=== PATIENT | male | born 1995 | race Native Hawaiian/Other Pacific Islander ===

== ENCOUNTER 2018-04-03 14:42 | Inpatient (IN) | payer BC ==
[~2018-04-03] VITALS: Ht 172.7 cm; Wt 77.4 kg
[2018-04-03 14:49] VITALS: BP 125/77; TEMP 99.3
[2018-04-03 15:38] LABS: PLATELET COUNT 269 K/uL (142-355)
[2018-04-03 16:04] LABS: POTASSIUM 4.1 mmol/L (3.6-5.2)
[2018-04-03 17:44] VITALS: BP 118/74; TEMP 99.6; Ht 172.7 cm; Wt 77.4 kg
[2018-04-03 20:03] VITALS: BP 108/90; TEMP 98.6
[2018-04-04] VITALS (7 sets, daily range): BP systolic 89–127; BP diastolic 54–73; TEMP 98.1–99.1
[2018-04-04 05:23] LABS: POTASSIUM 4.5 mmol/L (3.6-5.2)
[2018-04-04 08:27] LABS: PLATELET COUNT 229 K/uL (142-355)
[2018-04-05 05:16] VITALS: BP 119/76; TEMP 98.4
[2018-04-05 05:47] LABS: PLATELET COUNT 202 K/uL (142-355)
[2018-04-05 06:06] LABS: POTASSIUM 4.3 mmol/L (3.6-5.2)
[2018-04-05 07:23] VITALS: BP 132/78; TEMP 98.2
[2018-04-05 11:52] VITALS: BP 126/83; TEMP 98.3
[2018-04-05 16:00] VITALS: BP 122/73; TEMP 98.5
[2018-04-05 20:00] VITALS: BP 126/92; TEMP 98.3
[2018-04-06] VITALS: BP 112/70; TEMP 97.9
[2018-04-06 03:55] VITALS: BP 113/63; TEMP 97.7
[2018-04-06 08:02] VITALS: BP 125/86; TEMP 97.6
[2018-04-06 10:53] LABS: PLATELET COUNT 255 K/uL (142-355)
[2018-04-06 11:12] LABS: POTASSIUM 4.2 mmol/L (3.6-5.2)
[2018-04-06 12:22] VITALS: BP 128/77; TEMP 97.7
== END 2018-04-06 15:09 | disposition home or self-care (01) | DRG 158 ==
LOC: ED 14:42 → MED/SURG 16:25
PROVIDERS: Family Medicine; ADMIT Family Medicine
DX: M27.2 Inflammatory conditions of jaws (principal); L03.211 Cellulitis of face; R60.9 Edema, unspecified
CPT/HCPCS: 36415; 80053; 80202; 85027; 85651; 86140; 87040; 87070; 87077; 87185; 87186; 87205; 96365; 99284; J1885; J3370; Q9963

== ENCOUNTER 2018-04-08 09:39 | Outpatient (CLI) | payer BC ==
[~2018-04-08] VITALS: Ht 172.7 cm; Wt 72.6 kg
== END 2018-04-08 21:19 | disposition home or self-care (01) ==
LOC: INF 09:39
DX: L03.90 Cellulitis, unspecified (principal)
CPT/HCPCS: 96365; 96366; J3370

== ENCOUNTER 2018-04-09 07:57 | Outpatient (CLI) | payer BC ==
[~2018-04-09] VITALS: Ht 172.7 cm; Wt 72.6 kg
== END 2018-04-09 22:01 | disposition home or self-care (01) ==
LOC: INF 07:57
DX: L03.90 Cellulitis, unspecified (principal)
CPT/HCPCS: 36591; 80202; 96365; 96366; J3370

== ENCOUNTER 2018-04-10 08:29 | Outpatient (CLI) | payer BC ==
[~2018-04-10] VITALS: Ht 172.7 cm; Wt 72.6 kg
== END 2018-04-10 19:36 | disposition home or self-care (01) ==
LOC: INF 08:29
DX: L03.90 Cellulitis, unspecified (principal)
CPT/HCPCS: 96365; 96366; J3370

== ENCOUNTER 2018-04-11 08:17 | Outpatient (CLI) | payer BC ==
[~2018-04-11] VITALS: Ht 172.7 cm; Wt 72.6 kg
== END 2018-04-11 22:35 | disposition home or self-care (01) ==
LOC: INF 08:17
DX: L03.90 Cellulitis, unspecified (principal)
CPT/HCPCS: 96365; 96366; J3370

== ENCOUNTER 2018-04-12 08:11 | Outpatient (CLI) | payer BC ==
[~2018-04-12] VITALS: Ht 172.7 cm; Wt 72.6 kg
== END 2018-04-12 23:00 | disposition home or self-care (01) ==
LOC: INF 08:11
DX: K12.2 Cellulitis and abscess of mouth (principal); I89.1 Lymphangitis
CPT/HCPCS: 96365; 96366; J3370

== ENCOUNTER 2018-04-13 08:44 | Outpatient (CLI) | payer BC ==
[~2018-04-13] VITALS: Ht 172.7 cm; Wt 72.6 kg
== END 2018-04-13 23:45 | disposition home or self-care (01) ==
LOC: INF 08:44
DX: K12.2 Cellulitis and abscess of mouth (principal); I89.1 Lymphangitis
CPT/HCPCS: 96365; 96366; J3370

== ENCOUNTER 2019-06-26 13:35 | Emergency (ER) | payer OTHER ==
[~2019-06-26] VITALS: Ht 172.7 cm; Wt 77.1 kg
[2019-06-26 13:43] VITALS: TEMP 97.7
[2019-06-26 14:41] VITALS: BP 132/88
== END 2019-06-26 14:40 | disposition home or self-care (01) ==
LOC: ED 13:35
DX: S50.861A Insect bite (nonvenomous) of right forearm, initial encounter (principal); L03.113 Cellulitis of right upper limb; W57.XXXA Bitten or stung by nonvenomous insect and other nonvenomous arthropods, initial encounter
CPT/HCPCS: 96372; 99283; J0696; J1885

== ENCOUNTER 2019-08-03 16:11 | Observation (INO) | payer OTHER ==
[~2019-08-03] VITALS: Ht 172.7 cm; Wt 86.9 kg
[2019-08-03 16:20] VITALS: BP 158/97; TEMP 98.8
[2019-08-03 17:23] LABS: PLATELET COUNT 250 K/uL (142-355)
[2019-08-03 17:30] LABS: POTASSIUM 4.3 mmol/L (3.6-5.2)
[2019-08-03 21:39] VITALS: BP 146/98; TEMP 98.3; Ht 172.7 cm; Wt 86.9 kg
--- NOTE | 2019-08-03 22:01 | NUR ---
08/03/192049 PT TO ROOM 1108 DX PHARYNGITIS-STREP A/O.SALINE LOCK TO 20 GAUDGE RIGHT FOREARM.PT HAS SCAB AREA TO RT UPPER FOREARM APPROX 2CM SMALL AMOUNT BLOODY DRAINAGE NOTED.PT STATED HE WAS TREATED IN ER 2 WEEKS AGO FOR A SPIDER BITE BUT HAS NOT HEALED COMPLETLY.CALL LIGHT WITHIN REACH.CC
[2019-08-04] VITALS: BP 147/93; TEMP 98
[2019-08-04 04:00] VITALS: BP 144/89; TEMP 98.5
[2019-08-04 08:00] VITALS: BP 127/70; TEMP 99.2
--- NOTE | 2019-08-04 08:30 | NUR ---
Patient is on a CLD, 68" and IBW- 154+/-10% (139-169 lbs.) and kcal needs x 25 = 1750, x 30 2100, x 35 2450, pro 70-92 grams and fluids for weight x 25 = 2125 and weight at 186.7 lbs. and is a 23YOM, WBC 23.7 elevated, gl 113 elevated, Na depressed along iwht ALT and AST, TP elevated at 8.3 and alb 3.3 depressed and patient couldn't eat d/t sore throat and is a smkoer, etoh and street drugs per patient history. Has cellulitis to the face. 28.4 and is overweight for height/weight ratio for BMI. Recommendations: 1- Advance TIM 2- Increase fluids as tolerated. 3-If abscess to face is open add Vit c 500 mg bid and ZNSO4 220 mg per day and d/c in 6 weeks to promote healing.
[2019-08-04 08:56] LABS: PLATELET COUNT 226 K/uL (142-355)
[2019-08-04 12:00] VITALS: BP 136/91; TEMP 98.7
[2019-08-04 16:00] VITALS: BP 136/91; TEMP 98.4
[2019-08-04 20:00] VITALS: BP 133/87; TEMP 97.5
[2019-08-05] VITALS: BP 137/88; TEMP 97.6
[2019-08-05 04:00] VITALS: BP 126/87; TEMP 97.8
[2019-08-05 04:32] LABS: PLATELET COUNT 272 K/uL (142-355)
--- NOTE | 2019-08-05 05:33 | NUR ---
PT. RESTING QUIETLY IN BED WITH EYES CLOSED, NAD NOTED, RESP EVEN AND UNLABORED AT THIS TIME.
[2019-08-05 08:00] VITALS: BP 135/92; TEMP 98.3
--- NOTE | 2019-08-05 09:34 | NUR ---
0900 OFFERED PT TO [facility] RX FILLED AT OUR PHARM PT STATED HE WOULD GET FILLED AT HIS LOCAL PHARM.
== END 2019-08-05 09:27 | disposition home or self-care (01) ==
LOC: ED 16:11 → MED/SURG 19:19
PROVIDERS: Emergency Medicine; ADMIT Family Medicine
DX: J02.0 Streptococcal pharyngitis (principal); D72.828 Other elevated white blood cell count; R50.9 Fever, unspecified
CPT/HCPCS: 36415; 80053; 83605; 85027; 87040; 87502; 87651; 96372; 96374; 99220; 99284; G0378; J0696; J1885; J2930

== ENCOUNTER 2022-05-08 01:43 | Emergency (ER) | payer OTHER ==
[~2022-05-08] VITALS: Ht 172.7 cm; Wt 86.6 kg
[2022-05-08 03:14] LABS: PLATELET COUNT 240 K/uL (142-355)
[2022-05-08 03:21] LABS: POTASSIUM 3.6 mmol/L (3.6-5.2)
[2022-05-08 03:40] VITALS: BP 148/96; TEMP 98.6
== END 2022-05-08 03:40 | disposition home or self-care (01) ==
LOC: ED 01:43
PROVIDERS: Emergency Medicine
DX: F19.10 Other psychoactive substance abuse, uncomplicated (principal)
CPT/HCPCS: 36415; 80053; 80307; 81002; 84484; 85027; 85610; 85730; 93005; 99283